=== PATIENT | male | born 1960 | race Caucasian/White ===

== ENCOUNTER → 2017-07-19 | Outpatient (CLI) | payer OTHER ==
[~2017-07-19] VITALS: Ht 165.1 cm; Wt 118.4 kg
[2017-07-19] VITALS (11 sets, daily range): BP systolic 106–152; BP diastolic 51–86
[~2017-07-19] MED LIST: 0.9 % SODIUM CHLORIDE 10 ML DISP.SYRIN. IV PRN; ASPI-630 PO; HEPARIN for IV BOLUS 10,000 UNIT/10 ML VIAL. IART ONE; HEPARIN for IV BOLUS 10,000 UNIT/10 ML VIAL. ONE; IODIXANOL 320 MG/ML 100 ML VIAL. IART ONE; IODIXANOL 320 MG/ML 100 ML VIAL. ONE; LIDOCAINE 2% 20 ML VIAL. IJ ONE; LIDOCAINE 2% 20 ML VIAL. ONE; MELO15TA23 PO; MIDAZOLAM HCL/PF 2 MG/2 ML VIAL. IV ONE; MIDAZOLAM HCL/PF 2 MG/2 ML VIAL. ONE; NITROGLYCERIN 200 MCG/2 ML SYRINGE FOR CATH/VASC LAB. IART ONE; NITROGLYCERIN 200 MCG/2 ML SYRINGE FOR CATH/VASC LAB. ONE; NITROGLYCERIN SUBLINGUAL 0.4 MG BOTTLE OF 25. SL PRN; SIMV20TA3 PO; VERAPAMIL 5 MG/2 ML VIAL. IART ONE; VERAPAMIL 5 MG/2 ML VIAL. ONE; fentaNYL PF VIAL 100 MCG/2 ML VIAL IV ONE; fentaNYL PF VIAL 100 MCG/2 ML VIAL ONE
[2017-07-19 09:13] LABS: BASO # 0.1 x10^3/uL (0.0-0.2); BASO % 1 % (0-3); EOS % 3 % (0-3); HEMATOCRIT 47.5 % (39.0-53.0); HEMOGLOBIN 15.9 g/dL (13.0-17.5); LYMPH # 2.4 x10^3/uL (1.0-4.8); LYMPH % 25 % (24-48); MEAN CORPUSCULAR HEMOGLOBIN 29 pg (25-35); MEAN CORPUSCULAR HGB CONC 33 g/dL (31-37); MEAN CORPUSCULAR VOLUME 88 fL (79-100); MONO % 11 % (0-9); NEUT % 60 % (31-73); PLATELET COUNT 295 x10^3/uL (140-400); RED BLOOD COUNT 5.42 x10^6/uL (4.30-5.70); RED CELL DISTRIBUTION WIDTH 13.3 % (11.5-14.5); WHITE BLOOD COUNT 9.8 x10^3/uL (4.0-11.0)
[2017-07-19 09:29] LABS: CALCIUM 9.3 mg/dL (8.5-10.1); CREATININE 0.9 mg/dL (0.7-1.3); GFR 86.7
[2017-07-19 09:33] LABS: ALBUMIN 4.2 g/dL (3.4-5.0); ALBUMIN/GLOBULIN RATIO 1.1 (1.0-1.7); TOTAL BILIRUBIN 0.7 mg/dL (0.2-1.0)
--- NOTE | 2017-07-19 10:06 | PDOC ---
MODERATE SEDATION ASSESSMENT RISKS/ALTERNATIVES Risks/Alternatives Risks and alternatives of this type of sedation and procedure discussed with: RISK/ALTERNATIVES: Patient H & P ON CHART H & P H & P on chart and reviewed for co-morbid conditions and appropriate labs. H&P ON CHART: Yes STATUS PREG STATUS ASSESSED: N/A MEDS/ALLERGIES REVIEWED Meds/Allergies Reviewed Medications and Allergies including time and route of recently administered narcotics and sedatives. MEDS/ALLERGIES REVIEWED: Yes ASA RATING ASA RATING: III AIRWAY ASSESSMENT Airway Assessment Airway patency, oral function limitations, presence of caps, crowns, dentures, partials, and ability to extend neck assessed. AIRWAY ASSESSMENT: Yes MALLAMPATI SCORE MALLAMPATI SCORE: III PRE-SEDATION ASSESSMENT PRE-SEDATION ASSESSMENT: Yes JULI HENRY MD Jul 19, 2017 10:06
[2017-07-19 10:23] LABS: PROTHROMBIN TIME PATIENT 12.3 SEC (11.7-14.0)
--- NOTE | 2017-07-19 11:12 | CARD ---
APPROVED REPORT Procedure(s) performed: Moderate Sedation: 30 Minutes LHC, Coronary angiography, Left ventriculography HISTORY The patient is a 57 year-old male with a history of : diabetes mellitus with treatment, hypertension, dyslipidemia. INDICATION The indication(s) include : unstable angina . PROCEDURE NARRATIVE The patient was brought electively to the cardiac catheterization lab. A timeout was performed confi rming the patient's name, date of , procedure, and site of procedure. All necessary personnel w ere wearing the appropriate protective equipment and radiation monitor devices. After explaining the risks and benefits of the procedure and alternatives, informed consent was obtained. (See nursing no dannielle for medications administered). The right wrist was sterilely prepped and draped in the usual fas hion. The right wrist was infiltrated with 1 mL of 2% lidocaine for subcutaneous anesthesia. A 6 Fr ench Terumo glide sheath was inserted into the right radial artery without difficulty. Right and lef t coronary angiography was performed using a 6Fr TIG 4.0 catheter. Left ventricular end diastolic pr essure was obtained with a pigtail catheter and pullback was performed after left ventriculography. All catheter exchanges and advancements were performed over a guidewire. At case completion the righ t radial sheath was removed and a Terumo radial band was applied with 14 ml of air. The patient tole rated the procedure well and there were no immediate complications. HEMODYNAMICS: LVEDP 9 mm Hg No gradient on LV to aortic pullback. LEFT VENTRICULOGRAM: EF 55% Anterobasal: Normal. Anterolateral: Normal Apical: Normal Diaphragmatic: Normal Posterobasal: Normal *Mild mitral regurgitation. CORONARY ANGIOGRAPHY: LM is a large caliber vessel with normal angiographic appearance. LAD is a large caliber vessel with normal angiographic appearance. Ramus is a moderate to large caliber vessel with normal angiographic apeparance. LCx is a moderate caliber non-dominant vessel with normal angiographic appearance. OM1 is a moderate caliber vessel with normal angiographic appearance. RCA is a large caliber dominant vessel with normal angiographic appearance. RPDA and RPL are moderate caliber vessels with normal angiographic appearance. Conclusion 1. Normal left ventricular filling pressures. 2. No significant coronary disease. 3. Normal EF at > 60%. Recommendations Evaluation per PCP for other causes of dyspnea.
== END | disposition home or self-care (01) ==
LOC: CCL 08:41
PROVIDERS: ATTEND Internal Medicine Cardiovascular Disease
DX: I34.0 Nonrheumatic mitral (valve) insufficiency (principal); I10 Essential (primary) hypertension; E11.9 Type 2 diabetes mellitus without complications; E78.5 Hyperlipidemia, unspecified; E78.00 Pure hypercholesterolemia, unspecified; Z86.69 Personal history of other diseases of the nervous system and sense organs; Z86.39 Personal history of other endocrine, nutritional and metabolic disease; Z86.73 Personal history of transient ischemic attack (TIA), and cerebral infarction without residual deficits; Z72.0 Tobacco use
CPT/HCPCS: 36415; 80053; 85025; 85610; 93458; 99152; 99153; C1769; C1892; J1644; J2250; J3010; J3490; J2001